=== PATIENT | male | born 1945 | race Caucasian/White ===

== ENCOUNTER 2018-09-16 21:54 | Inpatient (IN) | payer MEDICARE ==
[2018-09-16 22:33] LABS: #Basophils 0.1 thou/uL (0.0-0.2); #Eosinphils 0.1 thou/uL (0.0-0.7); #Lymphocytes 1.9 thou/uL (1.20-3.40); #Monocytes 0.5 thou/uL (0.11-0.59); #Neutrophils 2.1 thou/uL (1.40-6.50); %Basophils 1.5 % (0.0-1.0); %Eosinophils 1.1 % (0.0-10.0); %Lymphocytes 41.3 % (21.0-51.0); %Monocytes 10.4 % (0.0-10.0); %Neutrophils 45.7 % (42.0-75.0); Hemoglobin 15.4 g/dL (14.0-18.0); Mean Corpuscular HGB CONC 34.6 g/dL (32.0-36.0); Mean Corpuscular Hemoglobin 32.1 pg (27.0-31.0); Mean Corpuscular Volume 92.8 fL (78.0-98.0); Mean Platelet Volume 6.7 fL (7.4-10.4); Platelet Count 145 thou/uL (130-400); RBC Distribution Width 11.9 % (11.5-14.5); Red Blood Cell (RBC) Count 4.79 mill/uL (4.70-6.10); White Blood Cell (WBC) Count 4.5 thou/uL (4.8-10.8)
--- NOTE | 2018-09-16 22:40 | RAD ---
EXAM: CHEST ONE VIEW HISTORY: Periodic heart palpitations and dizziness since one day ago. Chest pain. COMPARISON: None FINDINGS: The cardiac silhouette and pulmonary vasculature is within normal limits. The lungs are clear. Degene rative changes are seen in the spine. Vascular calcifications are present in the thoracic aorta. IMPRESSION: No acute cardiopulmonary process.
[2018-09-16 22:54] LABS: ALT (SGPT) 16 U/L (8-55); AST (SGOT) 18 U/L (5-34); Albumin 3.8 g/dL (3.4-4.8); Alkaline Phosphatase 79 U/L (40-150); Anion Gap 13 mmol/L (10-20); BUN (Urea Nitrogen) 32 mg/dL (8.4-25.7); CK (CPK) 106 U/L (30-200); Calc. Creatinine Clearance 0 mL/min (70-130); Calcium 9.1 mg/dL (7.8-10.44); Carbon Dioxide 27 mmol/L (23-31); Chloride 102 mmol/L (98-107); Estimated GFR-MDRD 59; Globulin 2.2 g/dL (2.4-3.5); Glucose 289 mg/dL (83-110); Lipase 30 U/L (8-78); Potassium 4.1 mmol/L (3.5-5.1); Sodium 138 mmol/L (136-145)
[2018-09-16] MEDS ORDERED: Diltiazem HCl 125 MG, Admixture Fee 1 EACH in Sodium Chloride 0.9% 100 ML IVPB SCH (23:00)
[2018-09-16] MEDS ORDERED: Enoxaparin Sodium 60 MG/0.6 ML SYRINGE ONE (23:44)
[2018-09-17] MEDS ORDERED: Sodium Chloride 0.9% 1,000 ML IV SCH (01:34)
[2018-09-17] MEDS ORDERED: Ondansetron ODT 4 MG TAB SL PRN (01:34)
[2018-09-17] MEDS ORDERED: Ondansetron PF 4 MG/2 ML Vial IVP PRN (01:34)
[2018-09-17 01:46] VITALS: BMI 29.9
[2018-09-17 02:18] LABS: Troponin I Less than 0.010 ng/mL (< 0.028)
[2018-09-17] MEDS ORDERED: Senokot S 8.6-50 MG TAB PO PRN (03:11)
[2018-09-17] MEDS ORDERED: Calcium Carbonate 500 MG ChewTAB PO PRN (03:11)
[2018-09-17] MEDS ORDERED: Insulin Regular 300 UNITS/3 ML VIAL SC PRN ×2 (03:11)
[2018-09-17] MEDS ORDERED: Dextrose 5% in Water 1,000 ML IV PRN (03:11)
[2018-09-17] MEDS ORDERED: Dextrose 50% Abboject 50 ML SYRINGE SLOW IVP PRN (03:11)
[2018-09-17] MEDS ORDERED: Acetaminophen 325 MG TAB PO PRN (03:11)
[2018-09-17] MEDS ORDERED: Nitroglycerin 0.4 MG TAB (25 Tab Bottle) PO PRN (03:14)
[2018-09-17] MEDS ORDERED: Diltiazem 125 MG in Sodium Chloride 0.9% 100 ML IVPB SCH ×2 (03:15→20:45)
--- NOTE | 2018-09-17 03:27 | HP ---
PRIMARY CARE PHYSICIAN: Dr. Gm Bacon in [place], [place]. PRIMARY BANQUET PILOT: Dr. Man in [place]. CHIEF COMPLAINT: Palpitations and lightheadedness. HISTORY OF PRESENT ILLNESS: The patient is a 73-year-old male with paroxysmal atrial fibrillation, diabetes mellitus type 2, hypertension and hyperlipidemia, who presented to the emergency room with above complaints. [facility] [place]. He has a history of atrial flutter/fibrillation ablation four years ago. He also had a cardiac catheterization in 2004, that was negative per family report. Around 9:00 a.m., the patient noticed palpitations. He was also dizzy at that time. He denies any chest pain, shortness of breath, or syncope. No recent immobilization or travel reported. He is currently on aspirin. No focal neurologic deficit reported. In the emergency room, his initial vital signs showed temperature 98.1, respirations of 16, pulse rate in 150s with blood pressure of 116/75. His EKG showed atrial fibrillation with rapid ventricular rate. He received 20 mg of IV Cardizem push and was started on Cardizem drip. He also received Lovenox 1 mg/kg along with IV fluid in the emergency room. PAST MEDICAL HISTORY: 1. Paroxysmal atrial fibrillation. 2. History of atrial flutter status post ablation, 4 years ago. 3. Diabetes mellitus type 2. 4. Hypertension. 5. Hyperlipidemia. PAST SURGICAL HISTORY: 1. Ablation in 2014. 2. Cataract surgery. 3. Bilateral knee replacement. ALLERGIES: NO KNOWN DRUG ALLERGIES. CURRENT HOME MEDICATIONS: 1. Glipizide extended release 10 mg b.i.d. 2. Aspirin 81 mg daily. 3. Lisinopril 2.5 mg daily. 4. Multivitamin one tablet daily. 5. Pioglitazone/metformin 15/500 twice a day. 6. Zocor 20 mg at bedtime. 7. Flomax 0.4 mg at bedtime. SOCIAL HISTORY: The patient currently lives at home with his . No current use of tobacco, alcohol, or drug use. FAMILY HISTORY: Negative for premature coronary artery disease. REVIEW OF SYSTEMS: All other review of systems was reviewed and were found negative. PHYSICAL EXAMINATION: VITAL SIGNS: As discussed above. GENERAL: A 73-year-old male, in no apparent distress. Denies any chest pain. No palpitations reported at this time. HEENT: Head, atraumatic and normocephalic. Sclerae anicteric. Moist mucous membranes. No oral lesion. NECK: Supple. No JVD appreciated. No carotid bruit. LUNGS: Clear to auscultation bilaterally. No wheezing, rales, or rhonchi. HEART: S1, S2 present. Irregularly irregular. No heaves or pulsation. No significant murmurs appreciated. ABDOMEN: Soft, nontender. Bowel sounds present. EXTREMITIES: No edema or calf tenderness. NEUROLOGIC: Grossly nonfocal. Moves all 4 extremities. Power was 5/5 in all extremities. PSYCHIATRIC: Alert, awake, and oriented x3. SKIN: Warm and dry. LYMPH NODES: No palpable lymph nodes in the neck. PERIPHERAL VASCULAR: Radial pulses are palpable bilaterally. MUSCULOSKELETAL: No joint swelling tenderness. LABORATORY FINDINGS: CBC showed WBC 4.5 with hemoglobin 15.4, hematocrit 44.5, platelet count of 145. Chemistry showed sodium 138, potassium 4.1, chloride 102, bicarb 27, BUN 32, creatinine 1.22. Troponin negative. BNP 232. Magnesium 2.0. EKG by my review as discussed above. Chest x-ray by my review was negative for acute findings. IMPRESSION: 1. Atrial fibrillation with rapid ventricular response. 2. History of paroxysmal atrial fibrillation/flutter status post ablation in 2014. 3. Hypertension. 4. Hyperlipidemia. 5. Obesity with a BMI of 30. 6. Diabetes mellitus type 2. 7. Benign prostatic hypertrophy. 8. Lightheadedness secondary to #1. 9. Chronic kidney disease, stage 3. PLAN: The patient will be monitored on the telemetry unit. Echocardiogram will be obtained. We will continue Cardizem drip. We will continue IV fluids at 75 mL for 2 L. We will hold lisinopril for now. Insulin sliding scale. Due to elevated CHADS2 score, we will continue Lovenox 1 mg/kg. The patient understands the risk associated with anticoagulation. Plan of care was discussed with the patient and the family at the bedside. They stated understanding. Job ID: [id number]
[2018-09-17] MEDS: Sodium Chloride 0.9% 1,000 ML IV SCH ×2 (03:40→15:18)
[2018-09-17 07:20] LABS: Troponin I Less than 0.010 ng/mL (< 0.028)
[2018-09-17] MEDS: Multivit, Therapeutic 1 TAB PO SCH (08:59)
[2018-09-17] MEDS: Famotidine 20 MG TAB PO SCH ×2 (08:59→21:07)
[2018-09-17] MEDS: Aspirin 81 mg Enteric Coated Tablet PO SCH (08:59)
--- NOTE | 2018-09-17 10:08 | PDOC.PN ---
- Subjective Encounter Start Date: 09/17/18 Encounter Start Time: 07:20 -: old records requested/rev Patient seen and examined. No new complaints. No overnight events pt is on cardizem drip and rate is still high, he has no symptoms associated with this at this time - Objective Resuscitation Status - Order Detail: 09/17/18 03:11 Resuscitation Status Routine Resuscitation Status: FULL: Full Resuscitation MAR Reviewed: Yes Vital Signs & Weight: Vital Signs (12 hours) Temp Pulse Resp BP Pulse Ox 09/17/18 07:00 98.0 F 77 19 97/55 L 95 09/17/18 03:15 97.6 F 60 18 92/50 L 97 09/17/18 01:35 98.7 F 90 16 113/56 L 96 Weight Weight 214 lb 14.4 oz I&O: 09/16/18 09/17/18 09/18/18 06:59 06:59 06:59 Intake Total 300 Balance 300 Result Diagrams: 09/16/18 22:23 09/16/18 22:23 Additional Labs: Accuchecks 09/17/18 05:19 POC Glucose 134 H Radiology Reviewed by me: Yes EKG Reviewed by me: Yes (afib) Phys Exam - Physical Examination Constitutional: NAD HEENT: PERRLA, moist MMs, sclera anicteric Neck: no JVD, supple Respiratory: no wheezing, no rales, no rhonchi Cardiovascular: no significant murmur, irregular Gastrointestinal: soft, non-tender, no distention, positive bowel sounds Musculoskeletal: no edema, pulses present Neurological: non-focal, normal sensation, moves all 4 limbs Lymphatic: no nodes Psychiatric: normal affect, A&O x 3 Skin: no rash, normal turgor Dx/Plan (1) Atrial fibrillation with RVR Code(s): I48.91 - UNSPECIFIED ATRIAL FIBRILLATION Status: Acute Comment: on cardizem drip, has high [id number] score, on lovenox (2) BPH (benign prostatic hyperplasia) Code(s): N40.0 - BENIGN PROSTATIC HYPERPLASIA WITHOUT LOWER URINRY TRACT SYMP Status: Chronic Comment: on flomax (3) Diabetes type 2, controlled Code(s): E11.9 - TYPE 2 DIABETES MELLITUS WITHOUT COMPLICATIONS Status: Chronic (4) Dyslipidemia Code(s): E78.5 - HYPERLIPIDEMIA, UNSPECIFIED Status: Chronic (5) H/O cardiac radiofrequency ablation Code(s): Z98.890 - OTHER SPECIFIED POSTPROCEDURAL STATES Status: Chronic (6) Hypertension Code(s): I10 - ESSENTIAL (PRIMARY) HYPERTENSION Status: Chronic (7) Obesity (BMI 30.0-34.9) Code(s): E66.9 - OBESITY, UNSPECIFIED Status: Chronic (8) PAF (paroxysmal atrial fibrillation) Code(s): I48.0 - PAROXYSMAL ATRIAL FIBRILLATION Status: Chronic - Plan cont current plan of care, plan discussed w/ family * Echo will be done * cardiology consulted * continue cardizem drip * continue gentle IVF * discussed with family and pt * discussed about 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 Review of Systems - Review of Systems ENT: negative: Ear Pain, Ear Discharge, Nose Pain, Nose Discharge, Nose Congestion, Mouth Pain, Mouth Swelling, Throat Pain, Throat Swelling, Other Respiratory: negative: Cough, Dry, Shortness of Breath, Hemoptysis, SOB with Excertion, Pleuritic Pain, Sputum, Wheezing Cardiovascular: negative: chest pain, palpitations, orthopnea, paroxysmal nocturnal dyspnea, edema, light headedness, other Gastrointestinal: negative: Nausea, Vomiting, Abdominal Pain, Diarrhea, Constipation, Melena, Hematochezia, Other Genitourinary: negative: Dysuria, Frequency, Incontinence, Hematuria, Retention , Other Musculoskeletal: negative: Neck Pain, Shoulder Pain, Arm Pain, Back Pain, Hand Pain, Leg Pain, Foot Pain, Other Skin: negative: Rash, Lesions, German, Bruising, Other - Medications/Allergies Allergies/Adverse Reactions: Allergies Allergy/AdvReac Type Severity Reaction Status Date / Time No Known Allergies Allergy Verified 09/17/18 01:50 Medications: Current Medications Acetaminophen (Tylenol) 650 mg PO Q4H PRN PRN Reason: Headache/Fever/Mild Pain (1-3) Aspirin (Ecotrin) 81 mg PO DAILY [facility] Last Admin: 09/17/18 08:59 Dose: 81 mg Atorvastatin Calcium (Lipitor) 10 mg PO HS [facility] Calcium Carbonate (Tums) 1,000 mg PO Q4H PRN PRN Reason: Heartburn or Indigestion Dextrose/Water (Dextrose 50%) 25 gm SLOW IVP PRN PRN PRN Reason: Hypoglycemia Enoxaparin Sodium (Lovenox) 80 mg SC 2350,1150 [facility] Famotidine (Pepcid) 20 mg PO BID [facility] Last Admin: 09/17/18 08:59 Dose: 20 mg Glipizide (Glucotrol Xl) 10 mg PO BID [facility] Last Admin: 09/17/18 08:59 Dose: 10 mg Glucagon (Glucagon) 1 mg IM PRN PRN PRN Reason: Hypoglycemia Sodium Chloride (Normal Saline 0.9%) 1,000 mls @ 75 mls/hr IV .[id number] [facility] Stop: 09/18/18 05:54 Last Admin: 09/17/18 03:40 Dose: 1,000 mls Dextrose/Water (D5w) 1,000 mls @ 0 mls/hr IV .Q0M PRN PRN Reason: Hypoglycemia Diltiazem HCl 125 mg/ Sodium (Chloride) 125 mls @ 5 mls/hr IVPB INF LARRY; Protocol Insulin Human Regular (Humulin R) 0 units SC .MILD SLIDING SCALE PRN PRN Reason: Mild Correctional Scale Insulin Human Regular (Humulin R) 0 units SC .BEDTIME SLIDING SC PRN PRN Reason: Bedtime Correctional Scale Multivitamins (Theragran) 1 tab PO DAILY [facility] Last Admin: 09/17/18 08:59 Dose: 1 tab Nitroglycerin (Nitrostat) 0.4 mg PO Q5MIN PRN PRN Reason: Chest Pain Ondansetron HCl (Zofran) 4 mg IVP Q6H PRN PRN Reason: Nausea/Vomiting Stop: 09/17/18 11:30 Ondansetron HCl (Zofran Odt) 4 mg SL Q6H PRN PRN Reason: Nausea/Vomiting Stop: 09/17/18 11:30 Senna/Docusate Sodium (Senokot S) 2 tab PO BID PRN PRN Reason: Constipation Sodium Chloride (Flush - Normal Saline) 10 ml IVF PRN PRN PRN Reason: Saline Flush Stop: 09/17/18 11:30 Sodium Chloride (Flush - Normal Saline) 10 ml IVF PRN PRN PRN Reason: Saline Flush Tamsulosin HCl (Flomax) 0.4 mg PO HS [facility]
[2018-09-17] MEDS ORDERED: Enoxaparin Sodium 80 MG/0.8 ML SYRINGE SC SCH (11:50)
--- NOTE | 2018-09-17 19:26 | CON ---
DATE OF CONSULTATION: 09/17/2018 CHIEF COMPLAINT: AFib. HISTORY OF PRESENT ILLNESS: Mr. Mauricio is a very pleasant 73-year-old white gentleman, who comes to the hospital for palpitations and lightheadedness. He lives in [place] and was here in town for a wedding. He started feeling lightheaded and felt palpitations. He has history of atrial fibrillation, so he decided to come into the hospital to be evaluated. He was found to be in AFib with RVR, started on diltiazem drip, and coagulated with subcutaneous Lovenox full dose and Cardio was consulted for this. On my evaluation, Mr. Mauricio remains in AFib, but is much better rate controlled and is feeling a little bit better now. He has a history of atrial fibrillation and atrial flutter. He had an ablation about 4 to 5 years ago at which point, he had both an AFib and aflutter ablation. He states that he has been off anticoagulation ever since only an aspirin for this and has not needed to have any antiarrhythmic and has not had any recurrence. PAST MEDICAL HISTORY: 1. Paroxysmal AFib, status post ablation. 2. Atrial flutter, status post ablation. 3. Type 2 diabetes. 4. Hypertension. 5. Hyperlipidemia. PAST SURGICAL HISTORY: 1. Ablation in 2014 as above. 2. Cataract surgery. 3. Bilateral knee replacements. 4. Left heart catheterization several years ago, normal per his report. ALLERGIES: NO KNOWN DRUG ALLERGIES. OUTPATIENT MEDICATIONS: 1. Glipizide. 2. Aspirin 81. 3. Lisinopril 2.5 mg a day. 4. Multivitamin daily. 5. Pioglitazone with metformin 15/500 twice a day. 6. Zocor 20 q.h.s. 7. Flomax. SOCIAL HISTORY: No alcohol, tobacco, or drugs. 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 FAMILY HISTORY: Noncontributory. REVIEW OF SYSTEMS: A 12-point review of systems was done and was all negative unless stated in the history of present illness. PHYSICAL EXAMINATION: VITAL SIGNS: Temperature 98.2, pulse 62, respiratory rate 17, saturation 94% on room air, and blood pressure 99/58. GENERAL: Awake, alert, oriented x3, in no distress. HEENT: Normocephalic, atraumatic. NECK: Supple. LUNGS: Clear. CARDIOVASCULAR: S1 and S2. Regular heart rate in the 90s to 120s. ABDOMEN: Soft. Positive bowel sounds. EXTREMITIES: No edema. SKIN: Warm and dry. LABORATORY DATA: Laboratory work was reviewed. CBC with a white count of 4, hemoglobin of 15, hematocrit 44, platelet count 145. Chemistry was unremarkable except for BUN of 33, creatinine 1.22, GFR 59, glucose was 289. Magnesium was normal. Calcium normal. Troponin was negative x3. BNP was 232. Albumin of 3.8, lipase of 30. Echocardiogram was reviewed. EF at 55% to 60%. Dilated left atrium. There is right ventricular systolic pressure of 33 mmHg with mild TR. ASSESSMENT: 1. Recurrent atrial fibrillation. 2. Currently in rapid ventricular response. 3. History of atrial flutter. 4. History of atrial fibrillation and aflutter ablation. 5. History of normal coronary catheterization. 6. Normal left ventricular function. PLAN: 1. We will put him on flecainide 100 mg twice a day and Eliquis for stroke prophylaxis. 2. We will switch diltiazem drip to just p.o. metoprolol. 3. Hopefully will convert with the flecainide. If he does not, we will plan on doing a OSMANY cardioversion in the morning. 4. We will keep him n.p.o. post midnight to keep him ready in case a OSMANY cardioversion is needed. 5. We will schedule these too as well. Thank you for letting me to participate in the care of your patient. We will follow. Job ID: [id number]
[2018-09-17] MEDS ORDERED: Atorvastatin Calcium 10 MG TAB PO SCH (21:00)
[2018-09-17] MEDS ORDERED: Tamsulosin HCl 0.4 MG CAP PO SCH (21:00)
[2018-09-17] MEDS: Apixaban 5 MG TAB PO SCH (21:07)
[2018-09-17] MEDS: Flecainide 50 MG TAB PO SCH (21:07)
[2018-09-17] MEDS: Metoprolol Tartrate 25 MG TAB PO SCH (21:07)
[2018-09-18 06:30] LABS: #Eosinphils 0.1 thou/uL (0.0-0.7); #Lymphocytes 1.4 thou/uL (1.20-3.40); #Monocytes 0.3 thou/uL (0.11-0.59); #Neutrophils 1.8 thou/uL (1.40-6.50); %Basophils 0.5 % (0.0-1.0); %Eosinophils 1.8 % (0.0-10.0); %Lymphocytes 39.7 % (21.0-51.0); %Monocytes 7.4 % (0.0-10.0); %Neutrophils 50.6 % (42.0-75.0); Hemoglobin 15.2 g/dL (14.0-18.0); Mean Corpuscular Hemoglobin 30.6 pg (27.0-31.0); Mean Corpuscular Volume 95.7 fL (78.0-98.0); Mean Platelet Volume 7.1 fL (7.4-10.4); Platelet Count 134 thou/uL (130-400); RBC Distribution Width 12.2 % (11.5-14.5); Red Blood Cell (RBC) Count 4.98 mill/uL (4.70-6.10); White Blood Cell (WBC) Count 3.6 thou/uL (4.8-10.8)
[2018-09-18 06:48] LABS: Anion Gap 11 mmol/L (10-20); BUN (Urea Nitrogen) 19 mg/dL (8.4-25.7); Calc. Creatinine Clearance 91 mL/min (70-130); Carbon Dioxide 27 mmol/L (23-31); Chloride 109 mmol/L (98-107); Estimated GFR-MDRD 72; Glucose 150 mg/dL (83-110); Magnesium 1.9 mg/dL (1.6-2.6); Potassium 4.3 mmol/L (3.5-5.1); Sodium 143 mmol/L (136-145)
[2018-09-18] MEDS: Apixaban 5 MG TAB PO SCH (08:36)
[2018-09-18] MEDS: Metoprolol Tartrate 25 MG TAB PO SCH (08:37)
[2018-09-18] MEDS: Aspirin 81 mg Enteric Coated Tablet PO SCH (08:38)
[2018-09-18] MEDS: Multivit, Therapeutic 1 TAB PO SCH (08:38)
[2018-09-18] MEDS: Flecainide 50 MG TAB PO SCH (08:38)
[2018-09-18] MEDS: Famotidine 20 MG TAB PO SCH (08:38)
--- NOTE | 2018-09-18 10:36 | PDOC.PN ---
- Subjective Encounter Start Date: 09/18/18 Encounter Start Time: 07:30 Patient seen and examined. No new complaints. No overnight events - Objective Resuscitation Status - Order Detail: 09/17/18 03:11 Resuscitation Status Routine Resuscitation Status: FULL: Full Resuscitation MAR Reviewed: Yes Vital Signs & Weight: Vital Signs (12 hours) Temp Pulse Resp BP Pulse Ox 09/18/18 08:32 97.7 F 73 19 111/78 92 L 09/18/18 02:50 97.4 F L 85 20 101/61 94 L Weight Weight 212 lb 8 oz I&O: 09/17/18 09/18/18 09/19/18 06:59 06:59 06:59 Intake Total 300 795 Balance 300 795 Result Diagrams: 09/18/18 05:43 09/18/18 05:43 Additional Labs: Accuchecks 09/18/18 09/17/18 09/17/18 05:05 20:23 16:56 POC Glucose 151 H 142 H 195 H 09/17/18 10:49 POC Glucose 177 H Radiology Reviewed by me: Yes (echo reviewed) EKG Reviewed by me: Yes (afib) Phys Exam - Physical Examination Constitutional: NAD HEENT: PERRLA, moist MMs, sclera anicteric Neck: no JVD, supple Respiratory: no wheezing, no rales, no rhonchi Cardiovascular: no significant murmur, no rub, irregular Gastrointestinal: soft, non-tender, no distention, positive bowel sounds Musculoskeletal: no edema, pulses present Neurological: non-focal, normal sensation Lymphatic: no nodes Psychiatric: normal affect, A&O x 3 Skin: no rash, normal turgor Dx/Plan (1) Atrial fibrillation with RVR Code(s): I48.91 - UNSPECIFIED ATRIAL FIBRILLATION Status: Acute Comment: now on flecainide and BB and elliquis (2) BPH (benign prostatic hyperplasia) Code(s): N40.0 - BENIGN PROSTATIC HYPERPLASIA WITHOUT LOWER URINRY TRACT SYMP Status: Chronic Comment: on flomax (3) Diabetes type 2, controlled Code(s): E11.9 - TYPE 2 DIABETES MELLITUS WITHOUT COMPLICATIONS Status: Chronic (4) Dyslipidemia Code(s): E78.5 - HYPERLIPIDEMIA, UNSPECIFIED Status: Chronic (5) H/O cardiac radiofrequency ablation Code(s): Z98.890 - OTHER SPECIFIED POSTPROCEDURAL STATES Status: Chronic (6) Hypertension Code(s): I10 - ESSENTIAL (PRIMARY) HYPERTENSION Status: Chronic (7) Obesity (BMI 30.0-34.9) Code(s): E66.9 - OBESITY, UNSPECIFIED Status: Chronic (8) PAF (paroxysmal atrial fibrillation) Code(s): I48.0 - PAROXYSMAL ATRIAL FIBRILLATION Status: Chronic - Plan cont current plan of care, plan discussed w/ family * today plan for OSMANY and possible cardioversion * after procedure possible discharge * discussed with cardiology and family member and pt * medication reviewed as below * symptomatic treatment. Review of Systems - Review of Systems ENT: negative: Ear Pain, Ear Discharge, Nose Pain, Nose Discharge, Nose Congestion, Mouth Pain, Mouth Swelling, Throat Pain, Throat Swelling, Other Respiratory: negative: Cough, Dry, Shortness of Breath, Hemoptysis, SOB with Excertion, Pleuritic Pain, Sputum, Wheezing Cardiovascular: negative: chest pain, palpitations, orthopnea, paroxysmal nocturnal dyspnea, edema, light headedness, other Gastrointestinal: negative: Nausea, Vomiting, Abdominal Pain, Diarrhea, Constipation, Melena, Hematochezia, Other Genitourinary: negative: Dysuria, Frequency, Incontinence, Hematuria, Retention , Other Musculoskeletal: negative: Neck Pain, Shoulder Pain, Arm Pain, Back Pain, Hand Pain, Leg Pain, Foot Pain, Other - Medications/Allergies Allergies/Adverse Reactions: Allergies Allergy/AdvReac Type Severity Reaction Status Date / Time No Known Allergies Allergy Verified 09/17/18 01:50 Medications: Current Medications Acetaminophen (Tylenol) 650 mg PO Q4H PRN PRN Reason: Headache/Fever/Mild Pain (1-3) Apixaban (Eliquis) 5 mg PO BID [facility] Last Admin: 09/18/18 08:36 Dose: 5 mg Aspirin (Ecotrin) 81 mg PO DAILY [facility] Last Admin: 09/18/18 08:38 Dose: 81 mg Atorvastatin Calcium (Lipitor) 10 mg PO HS [facility] Last Admin: 09/17/18 21:08 Dose: 10 mg Calcium Carbonate (Tums) 1,000 mg PO Q4H PRN PRN Reason: Heartburn or Indigestion Dextrose/Water (Dextrose 50%) 25 gm SLOW IVP PRN PRN PRN Reason: Hypoglycemia Famotidine (Pepcid) 20 mg PO BID [facility] Last Admin: 09/18/18 08:38 Dose: 20 mg Flecainide Acetate (Tambocor) 100 mg PO Q12HR [facility] Last Admin: 09/18/18 08:38 Dose: 100 mg Glipizide (Glucotrol Xl) 10 mg PO BID [facility] Last Admin: 09/18/18 08:36 Dose: 10 mg Glucagon (Glucagon) 1 mg IM PRN PRN PRN Reason: Hypoglycemia Dextrose/Water (D5w) 1,000 mls @ 0 mls/hr IV .Q0M PRN PRN Reason: Hypoglycemia Insulin Human Regular (Humulin R) 0 units SC .MILD SLIDING SCALE PRN PRN Reason: Mild Correctional Scale Insulin Human Regular (Humulin R) 0 units SC .BEDTIME SLIDING SC PRN PRN Reason: Bedtime Correctional Scale Metoprolol Tartrate (Lopressor) 12.5 mg PO BID [facility] Last Admin: 09/18/18 08:37 Dose: 12.5 mg Multivitamins (Theragran) 1 tab PO DAILY [facility] Last Admin: 09/18/18 08:38 Dose: 1 tab Nitroglycerin (Nitrostat) 0.4 mg PO Q5MIN PRN PRN Reason: Chest Pain Senna/Docusate Sodium (Senokot S) 2 tab PO BID PRN PRN Reason: Constipation Sodium Chloride (Flush - Normal Saline) 10 ml IVF PRN PRN PRN Reason: Saline Flush Tamsulosin HCl (Flomax) 0.4 mg PO HS [facility] Last Admin: 09/17/18 21:07 Dose: 0.4 mg
[2018-09-18] MEDS ORDERED: Atropine Sulfate 1 mg/10 ml Syringe ONE (11:03)
[2018-09-18] MEDS ORDERED: PROPOFOL 40 ML ONE (11:03)
--- NOTE | 2018-09-18 12:08 | DIS ---
DATE OF ADMISSION: 09/17/2018 DATE OF DISCHARGE: 09/18/2018 PRIMARY CARE PHYSICIAN: [place] Call admission. DISCHARGE DISPOSITION: Home. PRIMARY DISCHARGE DIAGNOSIS: Atrial fibrillation with rapid ventricular response. SECONDARY DISCHARGE DIAGNOSES: 1. Paroxysmal atrial fibrillation. 2. Obesity with BMI of 30. 3. Hypertension. 4. History of ablation for atrial flutter. 5. Dyslipidemia. 6. Diabetes type 2. 7. Benign enlargement of prostate. PRIMARY PROCEDURE/OPERATION: The patient is planned for transesophageal echocardiography and cardioversion. RADIOLOGICAL INVESTIGATION: Chest x-ray was normal. Echocardiography showed EF of 55% to 60%. SIGNIFICANT LABORATORY DATA: WBC 3.6, hemoglobin 15.2, platelets 134. Creatinine 1.02. Cardiac enzyme, negative. LFT, normal. DISCHARGE MEDICATIONS: 1. Aspirin 81 mg p.o. daily. 2. Glipizide 10 mg p.o. b.i.d. 3. Lisinopril 2.5 mg daily. 4. Multivitamin 1 tablet daily. 5. Pioglitazone with metformin 15/500 one tablet twice daily. 6. Zocor 20 mg p.o. at bedtime. 7. Flomax 0.4 mg p.o. daily. 8. Tambocor 100 mg p.o. b.i.d. 9. Eliquis 5 mg p.o. b.i.d. 10. Lopressor 12.5 mg p.o. b.i.d. CONTRAINDICATION: None. CODE STATUS: Full code. INPATIENT LEAD PRINCIPAL TECHNICAL ARCHITECT: Dr. Bates was consulted while in hospital. TEST RESULTS PENDING ON DISCHARGE: None. ALLERGIES: NO KNOWN DRUG ALLERGIES. 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 The patient will follow up with primary care physician as instructed. HOSPITAL COURSE: A 73-year-old male who was admitted by Dr. Tanner. Please see his H and P for further details. This patient has underlying paroxysmal atrial fibrillation and he was admitted for atrial fibrillation with RVR. The patient was feeling lightheaded and dizzy at home, and his pulse was very fast at home and he checked by himself. He arrived to ER and he was admitted to our hospital. He was treated with Cardizem drip with his rate under control. Cardiology was consulted and Cardiology started on Tambocor therapy. He remained in atrial fibrillation and that is why OSMANY was planned and cardioversion was planned. After those procedures were done, the patient will be stable for discharge if no complication. Based on the patient's CHADS2 score, the patient is at high-risk for CVA and that is why we discussed with the patient about risk and benefit of Eliquis therapy and the patient is discharged on Eliquis therapy. All new medication prescription given to him. The patient is seen and examined at bedside today. Please see my progress note from today for further details. Job ID: [id number]
--- NOTE | 2018-09-18 12:23 | OP ---
DATE OF PROCEDURE: 09/18/2018 PREPROCEDURE DIAGNOSIS: Atrial fibrillation with rapid ventricular rate. POSTPROCEDURE DIAGNOSIS: Atrial fibrillation with rapid ventricular rate. DESCRIPTION OF PROCEDURE: The Anesthesiology Department provided with sedation for the patient, please see their notes for details. After adequate sedation was achieved, one ICD shock was delivered at 100 joules synchronized, successfully converting him from atrial fibrillation into sinus rhythm. He eventually went back into atrial fibrillation and then he received a second shock of 200 joules, converting him back into sinus rhythm. At that point, he was having sinus beats and little runs of either atrial tachycardia or atrial fibrillation and then converting back into sinus rhythm and had several those runs of atrial tach versus atrial fibrillation, so concluded the procedure. He remains in sinus rhythm with small runs of nonsustained atrial tach/atrial fibrillation. The patient tolerated the procedure well. RECOMMENDATIONS: 1. Continue flecainide and Eliquis as well as metoprolol. 2. 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 Job ID: [id number]
[2018-09-18 12:40] VITALS: BP 122/68; TEMP 97.3
[2018-09-18 12:59] LABS: Platelet Count 118 thou/uL (130-400)
[2018-09-18] MEDS ORDERED: PROPOFOL 200 MG/20 ML VIAL ONE (13:19)
--- NOTE | 2018-09-19 15:40 | ECHO ---
DATE OF SERVICE: 09/18/18 PREPROCEDURE DIAGNOSIS: Atrial fibrillation with RVR. The Anesthesiology department provided with sedation for the patient. Please see their notes for det ails. After adequate sedation was achieved, transesophageal probe was inserted into the mouth and into the esophagus. Multiplanar views were obtained. Left ventricle function is normal. Mild mitral regurgitation. Left atrial enlargement. Right atrial enlargement. The right ventricle systolic function is normal Aortic valve is normal with trace AI. Left atrial appendage is a medium sized appendage with no evidence of mass or thrombus with reduced v elocities. CONCLUSIONS: 1. Normal LV systolic function, EF at 60%. 2. Left atrial enlargement. 3. Right atrial enlargement. 4. Trace AI. 5. Mild MR. 6. Left atrial appendage is without mass or thrombus.
--- NOTE | 2018-09-20 11:52 | EKG ---
Test Reason : POST CARDIOVERSION Blood Pressure : / mmHG Vent. Rate : 108 BPM Atrial Rate : 120 BPM P-R Int : 000 ms QRS Dur : 090 ms QT Int : 310 ms P-R-T Axes : 000 037 011 degrees QTc Int : 415 ms Paroxysmal atrial fibrillation with intermittent sinus pauses Otherwise normal ECG When compared with ECG of 16-SEP-2018 22:47, (Unconfirmed) Nonspecific T wave abnormality has replaced inverted T waves in Lateral leads Confirmed by DR. Michelet TRINIDAD ([id number]) on 09/20/2018 11:52:26 AM Referred By: [facility]MO Confirmed By:DR. Michelet TRINIDAD
== END 2018-09-18 16:32 | disposition home or self-care (01) | DRG 310 ==
LOC: ERS 21:54 → 2NO 09-17 01:18
PROVIDERS: ADMIT Internal Medicine; ATTEND Internal Medicine
PROC: 5A2204Z Restoration of Cardiac Rhythm, Single (ICD-10-PCS; principal; 2018-09-17)
PROC: B24BZZ4 Ultrasonography of Heart with Aorta, Transesophageal (ICD-10-PCS; 2018-09-17)
DX: I48.0 Paroxysmal atrial fibrillation (principal); E78.5 Hyperlipidemia, unspecified; E11.22 Type 2 diabetes mellitus with diabetic chronic kidney disease; I12.9 Hypertensive chronic kidney disease with stage 1 through stage 4 chronic kidney disease, or unspecified chronic kidney disease; N18.3 Chronic kidney disease, stage 3 (moderate); G47.30 Sleep apnea, unspecified; N40.0 Benign prostatic hyperplasia without lower urinary tract symptoms; E66.9 Obesity, unspecified; Z68.30 Body mass index [BMI] 30.0-30.9, adult; Z79.82 Long term (current) use of aspirin; Z79.84 Long term (current) use of oral hypoglycemic drugs; Z79.899 Other long term (current) drug therapy
CPT/HCPCS: 36415; 36416; 71045; 80048; 80053; 82550; 83690; 83735; 83880; 84484; 85025; 92960; 93005; 93010; 93306; 93312; 96365; 96366; 96372; 96376; J0461; J1650; J2704; J3490